=== PATIENT | male | born 1995 | race Caucasian/White ===

== ENCOUNTER 2021-10-26 16:11 | Inpatient (IN) ==
[2021-10-26 17:15] LABS: ABS Lymphocytes 1.3 10^3/ul (1.0-4.8); ABS Monocytes 0.6 10^3/ul (0-0.8); ABS Neutrophils 5.4 10^3/ul (1.5-7.7); Eosinophil % 0.4 %; Hematocrit 39 % (42-52); Hemoglobin 12.8 g/dL (14.0-18.0); Lymphocyte % 18.1 %; Mean Corpuscular HGB Conc 33 g/dL (31-36); Mean Corpuscular Hemoglobin 26 pg (27-31); Mean Corpuscular Volume 80 fL (80-94); Mean Platelet Volume 9.1 fL (7.4-10.4); Nucleated Red Blood Cells % 0.1; Platelet Count 231 10^3/uL (150-450); Red Blood Count 4.93 10^6 /uL (4.18-5.48); Red Cell Distribution Width 15 % (10-15); White Blood Count 7.3 10^3/uL (3.5-10.8)
[2021-10-26 17:54] LABS: ALT 20 U/L (7-52); AST 19 U/L (13-39); Acetaminophen < 15 mcg/mL; Albumin 3.6 g/dL (3.2-5.2); Albumin/Globulin Ratio 1.2 (1-3); Alcohol, S < 13 mg/dL (<13); Alkaline Phosphatase 63 U/L (35-149); Anion Gap 7 mmol/L (2-11); Blood Urea Nitrogen 10 mg/dL (6-24); CO2 Carbon Dioxide 25 mmol/L (22-32); Calcium 8.4 mg/dL (8.6-10.3); Chloride 107 mmol/L (101-111); Globulin 3.1 g/dL (2-4); Glucose 88 mg/dL (70-100); Potassium 4.2 mmol/L (3.5-5.0); Salicylate < 2.50 mg/dL (<30); Sodium 139 mmol/L (135-145); Total Protein 6.7 g/dL (6.4-8.9); eGFR CKD-EPI 122.3 (>60)
[2021-10-26 18:03] LABS: TSH Ultra Thyroid Stim Horm 1.53 mcIU/mL (0.34-5.60)
[2021-10-26 19:36] LABS: Urine Appearance Cloudy; Urine Bilirubin Negative (Negative); Urine Blood Negative (Negative); Urine Color Yellow; Urine Glucose Negative (Negative); Urine Ketones Negative (Negative); Urine Nitrite Negative (Negative); Urine Protein Negative (Negative); Urine Specific Gravity 1.021 (1.002-1.030); Urine Urobilinogen Negative (Negative)
[2021-10-26 20:08] LABS: Urine Benzodiazepine Screen None Detected (None Detect); Urine Cannabinoids Screen None Detected (None Detect); Urine Opiates Screen None Detected (None Detect)
[2021-10-26] MEDS ORDERED: Al Hydrox/Mg Hydrox/Simet LIQ 30 ML UDC PO PRN (20:42)
[2021-10-26] MEDS: CMCS: Estradiol 1 mg TAB (NF) PO SCH (22:29)
[2021-10-27] MEDS: CMCS: Estradiol 1 mg TAB (NF) PO SCH ×2 (08:51→20:52)
[2021-10-27] MEDS: Polyethylene Glycol 3350 17 GM PACKET PO SCH (08:55)
[2021-10-27] MEDS ORDERED: Venlafaxine XR 75 mg PO SCH (09:00)
[2021-10-27] MEDS ORDERED: Amphetamine/Dextroam ER 20(NF) 20 mg CAP.ER PO SCH (09:00)
[2021-10-27] MEDS ORDERED: Vitamin THERAPEUTIC TAB PO SCH (09:00)
[2021-10-27] MEDS: CMCS: Venlafaxine 25 mg TAB (NF) PO SCH (09:23)
[2021-10-27] MEDS ORDERED: CMCS: Venlafaxine 25 mg TAB (NF) PO SCH (21:00)
[2021-10-28 08:01] VITALS: BP 135/88
[2021-10-28] MEDS: CMCS: Estradiol 1 mg TAB (NF) PO SCH (08:23)
[2021-10-28] MEDS: CMCS: Venlafaxine 25 mg TAB (NF) PO SCH (08:24)
[2021-10-28] MEDS: Polyethylene Glycol 3350 17 GM PACKET PO SCH (08:29)
== END 2021-10-28 16:42 | disposition home or self-care (01) | DRG 883 ==
LOC: ED 16:11 → BSU 19:40
PROVIDERS: ADMIT Psychiatry & Neurology Psychiatry; ATTEND Student in an Organized Health Care Education/Training Program